=== PATIENT | female | born 1950 | race Caucasian/White ===

== ENCOUNTER 2024-05-26 12:09 | Emergency (ER) | payer MEDICARE ==
[~2024-05-26] VITALS: Ht 157.5 cm; Wt 75.0 kg
[2024-05-26 12:15] VITALS: O2SAT 97
[2024-05-26] MEDS: SODIUM CHLORIDE 0.9% 1,000 ML IV ONE (13:21)
[2024-05-26] MEDS: MORPHINE SULFATE 2 MG/ML INJ (NOT FOR IM USE) IV ONE (13:21)
[2024-05-26 13:22] LABS: HEMATOCRIT. 36.2 % (36.0-48.0); HEMOGLOBIN. 11.6 g/dL (12.0-16.0); MEAN CORPUSCULAR HEMOGLOBIN 32.3 pg (28.0-32.0); MEAN CORPUSCULAR HGB CONC 32.2 g/dL (31.0-37.0); MEAN CORPUSCULAR VOLUME 100.5 fL (81.0-99.0); MEAN PLATELET VOLUME 8.7 fl (7.4-10.4); PLATELET 225 x1000/uL (130-400); RED BLOOD CELL COUNT 3.61 mill/uL (4.2-5.4); RED CELL DISTRIBUTION WIDTH 14.7 % (11.6-14.6); WHITE BLOOD COUNT 7.2 x1000/uL (4.5-11.0)
[2024-05-26 13:24] LABS: DIFFERENTIAL COMMENT 1
[2024-05-26 13:28] LABS: CHLORIDE 111 mEq/L (98-107); POTASSIUM 3.6 mEq/L (3.5-5.1); SODIUM 141 mEq/L (136-145)
[2024-05-26 13:29] LABS: CALCIUM 8.5 mg/dL (8.7-10.4); CARBON DIOXIDE 23 mEq/L (21-32)
[2024-05-26 13:34] LABS: CREATININE 0.5 mg/dL (0.6-1.0); D-DIMER 2.68 mg/L FEU (<0.50); GLUCOSE 88 mg/dL (70-105); PARTIAL THROMBOPLASTIN TIME 22.8 sec (23.4-31.0); PROTHROMBIN TIME 10.7 sec (9.6-11.0)
[2024-05-26 13:35] LABS: UREA NITROGEN BLOOD 8 mg/dL (9-23)
[2024-05-26 13:36] LABS: ALANINE AMINOTRANSFERASE 16 IU/L (10-49); ASPARTATE AMINOTRANSFERASE 24 IU/L (<34); TROPONIN I HIGH SENSITIVITY 11 ng/L (3.0-34)
[2024-05-26 13:37] LABS: BILIRUBIN TOTAL 0.5 mg/dL (0.1-1.0); PROTEIN TOTAL 6.5 g/dL (6.0-8.3)
[2024-05-26] MEDS ORDERED: RIVAROXABAN 10 MG TABLET PO STA (14:36)
[2024-05-26 14:52] LABS: PLATELET ESTIMATE NORMAL
[2024-05-26] MEDS: ONDANSETRON HCL 4MG/2ML INJ IV STA (15:00)
[2024-05-26] MEDS: MORPHINE SULFATE 4 MG/ML INJ (FOR IV/IM USE) IV STA (15:01)
[2024-05-26] MEDS: RIVAROXABAN 20 MG TABLET PO SCH (15:39)
[2024-05-26 16:28] LABS: TROPONIN I HIGH SENSITIVITY 20 ng/L (3.0-34)
[2024-05-26 19:40] VITALS: BP 125/61; PULSE 89; RESP 20; TEMP 36.83628; O2SAT 97
[2024-05-26] MEDS ORDERED: IOHEXOL-350 100 ML BOTTLE ONE (22:16)
== END 2024-05-26 20:10 | disposition left against medical advice (07) ==
LOC: ER 13:04 → EDBEDREQ 18:03 → ER 20:10
DX: R07.89 Other chest pain (principal); E78.00 Pure hypercholesterolemia, unspecified; I10 Essential (primary) hypertension
CPT/HCPCS: 99285; 96374; 71275; 96361; 71045; 96375; 80053; 83880; 83735; 85025; 85379; 85610; 85730; 84484; 36415; 93005; 96376; Q9967; J2405; J2270 ×2; J7030